=== PATIENT | male | born 1960 | race Caucasian/White ===

== ENCOUNTER 2023-12-16 11:19 | Emergency (ER) | payer OTHER, BC, SELFPAY ==
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
[2023-12-16 11:27] VITALS: BP 141/79; PULSE 91; RESP 16; TEMP 35.9; O2SAT 96; BMI 26.2
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
[2023-12-16] MEDS: Lidocaine 4 % Patch ADH..PATCH 1 PATCH TRANSDERMA (13:28)
[2023-12-16 15:14] VITALS: BP 127/78; PULSE 80; RESP 16; TEMP 36.1; O2SAT 97
== END 2023-12-16 15:16 | disposition home or self-care (01) ==
PROVIDERS: Emergency Provider Emergency Medicine
DX: S39.92XA Unspecified injury of lower back, initial encounter (principal); V43.52XA Car driver injured in collision with other type car in traffic accident, initial encounter; Y93.9 Activity, unspecified; Y92.410 Unspecified street and highway as the place of occurrence of the external cause; Y99.9 Unspecified external cause status; M54.6 Pain in thoracic spine; M54.50 Low back pain, unspecified; I10 Essential (primary) hypertension; I82.409 Acute embolism and thrombosis of unspecified deep veins of unspecified lower extremity; Z79.01 Long term (current) use of anticoagulants
CPT/HCPCS: 72070; 72100; 99282; 99283